=== PATIENT | male | born 1960 ===

== ENCOUNTER 2021-09-09 21:33 | Emergency (ER) | payer OTHER ==
[~2021-09-09] VITALS: Ht 175.3 cm; Wt 80.3 kg
== END 2021-09-09 23:00 | disposition home or self-care (01) ==
LOC: ER 21:33
DX: S06.0X9A Concussion with loss of consciousness of unspecified duration, initial encounter (principal); X58.XXXA Exposure to other specified factors, initial encounter; Y93.67 Activity, basketball; Y92.89 Other specified places as the place of occurrence of the external cause